=== PATIENT | female | born 1950 | race Caucasian/White ===

== ENCOUNTER 2017-04-27 06:49 | Day surgery (SDC) | payer MEDICARE ==
[2017-04-25 11:14] VITALS: BMI 52.6
[~2017-04-27 06:49] MED LIST: LACTATED RINGERS 1,000 ML IV SCH
[2017-04-27] MEDS ORDERED: LIDOCAINE 1% 20 ML VIAL (10MG/ML) FOR IV START INTRADERMA ONE (07:34)
[2017-04-27 07:36] VITALS: TEMP 98.4
[2017-04-27] MEDS ORDERED: ONDANSETRON 4 MG/2 ML VIAL IVP ONE (07:51)
[2017-04-27] MEDS ORDERED: LIDOCAINE 1% INJ 10MG/ML (20 ML MDV) ONE (08:32)
[2017-04-27] MEDS ORDERED: PROPOFOL 10 MG/ML 20 ML VIAL IV ONE (08:32)
--- NOTE | 2017-04-27 08:36 | P.GSHP ---
History of Present Illness H&P Date: 04/27/17 Chief Complaint: H/O colon polyps 66 yrs old female presents for colonoscopy. Last colonoscopy 3 yrs ago and had polyps. No change in bowel habits - Review of Systems Comment: Constitutional: Denies fever, weight loss or loss of appetite HEENT: No difficulty in vision or hearing. Denies dysphagia. Cardiovascular: Denies chest pain, palpitations, dizziness, shortness of breath. Respiratory: No cough . Gastrointestinal: No recent change in bowel habits, no abdominal pain, no nausea or vomiting. Denies reflux symptoms and no postprandial right upper quadrant pain. Genitourinary: No urinary incontinence, hematuria or dysuria Neurologic: No seizures, denies weakness in upper or lower extremities Musculoskeletal: Occasional left knee pain. Psychiatry: No history of depression, no suicidal ideation, no anxiety or psychosis Past Medical History Past Medical History: Asthma, GERD/Reflux, Hypertension, Neurologic Disorder, Sleep Apnea/CPAP/BIPAP Additional Past Medical History / Comment(s): MOTOR NERVE NEUROPATHY BLE. ON ANTIBIOTICS FOR BRONCHITIS AND SINUS INFECTION History of Any Multi-Drug Resistant Organisms: None Reported Past Surgical History: Appendectomy, Back Surgery, Cholecystectomy, Hysterectomy , Joint Replacement, Orthopedic Surgery, Tonsillectomy Additional Past Surgical History / Comment(s): BACK X 2, BILAT TKA, BILAT CTR, COLONOSCOPY, EGD, CERVICAL FUSION, BILAT SHOULDER REPLACEMENT, MULTIPLE BILAT FOOT SX, ANAL RECONSTRUCTON FROM DEFECT SINCE [id number]-YRS AGO Past Anesthesia/Blood Transfusion Reactions: Postoperative Nausea & Vomiting ( PONV) Smoking Status: Never smoker - Past Family History Mother Family Medical History: No Reported History Medications and Allergies Home Medications Medication Instructions Recorded Confirmed Type Allopurinol [Zyloprim] 300 mg PO HS 11/30/13 04/27/17 History DULoxetine HCL [Cymbalta] 60 mg PO BID 11/30/13 04/27/17 History Gabapentin [Neurontin] 1,200 mg PO BID 11/30/13 04/27/17 History Montelukast [Singulair] 10 mg PO HS 11/30/13 04/27/17 History Albuterol Sulfate [Proair Hfa] 1 - 2 puff INHALATION Q6HR PRN 04/25/17 04/27/17 History Amoxic-Pot Clav 875-125Mg 1 tab PO BID 04/25/17 04/27/17 History [Augmentin 875-125] Baclofen 10 mg PO TID 04/25/17 04/27/17 History Calcium Polycarbophil [Fibercon] 625 mg PO DAILY 04/25/17 04/27/17 History Cholecalciferol [Vitamin D3] 1,000 units PO DAILY 04/25/17 04/27/17 History Diclofenac Sodium 25 mg PO QID 04/25/17 04/27/17 History Fexofenadine HCl [Carolyn Allergy] 180 mg PO DAILY 04/25/17 04/27/17 History HYDROcodone/APAP 7.5-325MG [[place] 1 tab PO Q6HR PRN 04/25/17 04/27/17 History 7.5-325] Losartan Potassium 100 mg PO DAILY 04/25/17 04/27/17 History Multivitamins, Thera [Multivitamin 1 tab PO DAILY 04/25/17 04/27/17 History (formulary)] Pyridoxine HCl (Vitamin B6) 100 mg PO DAILY 04/25/17 04/27/17 History [Vitamin B-6] Vitamin E (Dl,Tocopheryl Acet) 800 units PO DAILY 04/25/17 04/27/17 History [Vitamin E] Allergies Allergy/AdvReac Type Severity Reaction Status Date / Time adhesive tape Allergy Rash/Hives Verified 04/27/17 07:33 amitriptyline Allergy Rash/Hives Verified 04/27/17 07:33 fluphenazine enanthate Allergy Rapid Verified 04/27/17 07:33 [From Prolixin] Heart Rate fluphenazine HCl Allergy Rapid Verified 04/27/17 07:33 [From Prolixin] Heart Rate latex Allergy Rash/Hives Verified 04/27/17 07:33 Sulfa (Sulfonamide Allergy Anaphylaxis Verified 04/27/17 07:33 Antibiotics) levofloxacin [From Levaquin] AdvReac Nausea & Verified 04/27/17 07:33 Vomiting morphine AdvReac Nausea & Verified 04/27/17 07:33 Vomiting Surgical - Exam Vital Signs Temp Pulse Resp BP Pulse Ox 98.4 F 73 16 172/62 96 04/27/17 07:34 04/27/17 07:34 04/27/17 07:34 04/27/17 07:34 04/27/17 07:34 General: Patient is alert and oriented to time, place and person and cooperative with exam. He is not in acute distress. HEENT: No pallor, no icterus, no thyroid enlargement, no cervical lymphadenopathy. Chest: Bilateral equal breath sounds present. No wheezes, no crackles. Cardiovascular: Regular rate and rhythm. Abdomen: Soft, nontender, nondistended. No right upper quadrant tenderness. Integumentary: Bilateral lower extremity chronic venous dermatitis. No active ulcers or discharge. Neurologic: Cranial nerves II-XII intact. Strength upper and lower extremities 5/5. No focal neurologic deficits. Gait is normal. Psychiatric: No anxiety or psychosis. No suicidal thoughts. Assessment and Plan (1) Colon polyps Current Visit: Yes Status: Acute Code(s): K63.5 - POLYP OF COLON SNOMED Code(s): 04780129 Plan: Colonoscopy with possible biopsy. Informed consent obtained and patient elected to undergo the procedure. The risks, benefits and potential complications were explained to the patient.
--- NOTE | 2017-04-27 08:57 | P.OP ---
Date of Procedure: 04/27/17 Preoperative Diagnosis: Personal history of colon polyps Morbid obesity BMI 52.6 Postoperative Diagnosis: Same Procedure(s) Performed: Colonoscopy with cold biopsy 2 Anesthesia: MAC Surgeon: Roxanne Solis Pathology: none sent Condition: stable Disposition: PACU Indications for Procedure: 66 years old female presents for surveillance colonoscopy. Prior history of colonoscopy 3-1/2 years ago and had multiple polyps. Informed consent obtained and patient elected to undergo colonoscopy with possible biopsy. Operative Findings: Two less than 5mm sigmoid colon polyps Scattered sigmoid colon diverticulosis Description of Procedure: The patient was brought to the endoscopy suite and placed in lateral decubitus position. IV sedation was given as per anesthesia team. Patient was on continuous vitals and pulse oximetry monitoring throughout the procedure. A timeout was performed to verify correct patient and correct procedure. Perianal examination did not show any external hemorrhoids. Digital rectal examination was performed. No masses or gross blood. A well-lubricated Olympus colonoscope was passed per rectally and was gradually advanced beyond the sigmoid colon, splenic flexure, transverse colon, hepatic flexure and cecum. The ileocecal valve was visualized as well as the appendiceal orifice . The colonoscope was gradually withdrawn inspecting all the mucosal surfaces. Bowel prep was good. No masses, AV malformations noted. Sigmoid diverticulosis noted without any evidence of acute diverticulitis. Two less than 5 mm polyps noted in the sigmoid colon which were removed using cold biopsy forceps. Those were completely removed The scope was gradually withdrawn and retroflexed in the rectum . No internal hemorrhoids seen. Total withdrawal time was greater than 6 minutes . Patient tolerated the procedure well and was taken to post anesthesia care unit in stable condition. Recommend repeat colonoscopy in 5 years . Final Pathologic Diagnosis COLON, SIGMOID, BIOPSY: FRAGMENT OF COLONIC MUCOSA WITH ADENOMA AND FRAGMENT OF COLONIC MUCOSA WITH PROMINENT SUBMUCOSAL STROMA. PENDING IMMUNOHISTOCHEMICAL STAINS. COLON, SIGMOID, BIOPSY: ADENOMA AND SUBMUCOSAL LEIOMYOMA. Comment Smooth muscle actin immunohistochemical stain is performed with appropriate controls and microscopically examined. The stain demonstrates reactivity with the prominent submucosal stromal tissue consistent with submucosal leiomyoma. The diagnosis has been finalized as above.
[2017-04-27 09:08] VITALS: PULSE 62
[2017-04-27 09:36] VITALS: BP 135/71; RESP 18
== END 2017-04-27 09:55 | disposition home or self-care (01) ==
LOC: ORWHC2ENDO 06:49
PROVIDERS: ATTEND Surgery
DX: Z12.11 Encounter for screening for malignant neoplasm of colon (principal); D12.5 Benign neoplasm of sigmoid colon; K57.30 Diverticulosis of large intestine without perforation or abscess without bleeding; Z86.010 Personal history of colon polyps; E66.01 Morbid (severe) obesity due to excess calories; Z68.43 Body mass index [BMI] 50.0-59.9, adult; J45.909 Unspecified asthma, uncomplicated; K21.9 Gastro-esophageal reflux disease without esophagitis; I10 Essential (primary) hypertension; G47.33 Obstructive sleep apnea (adult) (pediatric); Z99.89 Dependence on other enabling machines and devices; Z79.2 Long term (current) use of antibiotics; Z79.1 Long term (current) use of non-steroidal anti-inflammatories (NSAID); Z79.899 Other long term (current) drug therapy; Z88.1 Allergy status to other antibiotic agents; Z91.040 Latex allergy status; Z88.5 Allergy status to narcotic agent; Z88.2 Allergy status to sulfonamides; Z91.09 Other allergy status, other than to drugs and biological substances
CPT/HCPCS: 88305; 45380; J2405; J2001; J2704; 88342

== ENCOUNTER 2018-08-12 19:43 | Emergency (ER) | payer MEDICARE ==
[2018-08-12 20:03] VITALS: RESP 18; TEMP 98.3
--- NOTE | 2018-08-12 20:59 | CT ---
EXAMINATION TYPE: CT brain denton chan DATE OF EXAM: 08/12/2018 COMPARISON: None HISTORY: Fall today, landing face first on cement. CT DLP: 1561.5 mGycm Automated exposure control for dose reduction was used. TECHNIQUE: CT scan of the head and cervical spine are performed without contrast. FINDINGS: Ventricles of normal size. There is no mass effect nor midline shift. There is no sign of intracranial hemorrhage. The calvarium is intact. There is anterior fusion surgery at C5-6 and C6 and C7. The skull base is intact. The posterior eleme nts are intact. There is no evidence of a fracture. There is mild hypertrophic facet arthropathy. IMPRESSION: Negative CT scan of the brain. Spondylotic changes in the cervical spine with previous surgery. No fracture.
--- NOTE | 2018-08-12 21:01 | CT ---
EXAMINATION TYPE: CT facial bones wo con DATE OF EXAM: 08/12/2018 COMPARISON: 9 HISTORY: Fall today, landing face first on cement. CT DLP: 1561.5 mGycm Automated exposure control for dose reduction was used. TECHNIQUE: CT scan of the sinuses is performed without contrast, axial images are obtained, coronal r eformatted images are also reviewed. FINDINGS: The mandibular ring is intact. Temporomandibular joints are intact. Zygomatic arches appear normal. Maxilla is intact. Nasal bones intact. There is no evidence of a blowout fracture. Orbital m argins are intact. There is no evidence of orbital mass. The maxilla is intact. I see no bony destruc tive process. There is fairly normal aeration of the paranasal sinuses. IMPRESSION: Normal CT scan of the facial bones. No fracture.
[2018-08-12] MEDS ORDERED: DIPH,PERTUS(ACELL)TETVAC-LF 0.5 ML VIAL IM ONE (21:05)
--- NOTE | 2018-08-12 22:06 | XR ---
EXAMINATION TYPE: XR Hip Complete RT DATE OF EXAM: 08/12/2018 COMPARISON: NONE HISTORY: Pain TECHNIQUE: 2 views FINDINGS: I see no fracture nor dislocation. Hip joint space is normal. IMPRESSION: Negative right hip exam.
--- NOTE | 2018-08-12 22:08 | ED ---
General Adult HPI <Giovanny Kruse - Last Filed: 08/12/18 22:51> - General Source: patient, family, EMS, RN notes reviewed, old records reviewed Mode of arrival: EMS Limitations: no limitations <Miah Combs - Last Filed: 08/12/18 23:17> - General Chief complaint: Fall Stated complaint: Fall Time Seen by Provider: 08/12/18 20:14 - History of Present Illness Initial comments: 67-year-old female patient with past history of multiple orthopedic surgeries presents ED after sustaining 2 mechanical falls. Patient states that the first mechanical fall occurred earlier today when she stumbled and fell on her right hip. Patient is to the second mechanical fall occurred approximately one hour prior to presentation to Hospital when she stumbled getting out of her car, fell forward, causing an abrasion above her left orbit as well as her lip. Patient denies any loss of consciousness. Patient primary complaint is abrasion and face. Evaluation of trauma to face. Patient denies any use of blood thinners. Patient denies any other complaints. Patient denies any other complaints. Systemic: Pt denies fatigue, myalgia, fever/chills, rash. Pt denies weakness, night sweats, weight loss. Neuro: Pt denies headache, visual disturbances, syncope or pre-syncope. HEENT: Pt denies ocular discharge or irritation, otalgia, rhinorrhea, pharyngitis or notable lymphadenopathy. Cardiopulmonary: Pt denies chest pain, SOB, heart palpitations, dyspnea on exertion. Abdominal/GI: Pt denies abdominal pain, n/v/d. : Pt denies dysuria, burning w/ urination, frequency/urgency. Denies new onset urinary or bowel incontinence. MSK: Pt denies myalgia, loss of strength or function in extremities. Neuro: Pt denies new onset weakness, paresthesias. (Miah Combs) - Related Data Home Medications Medication Instructions Recorded Confirmed Allopurinol [Zyloprim] 300 mg PO HS 11/30/13 04/27/17 DULoxetine HCL [Cymbalta] 60 mg PO BID 11/30/13 04/27/17 Gabapentin [Neurontin] 1,200 mg PO BID 11/30/13 04/27/17 Montelukast [Singulair] 10 mg PO HS 11/30/13 04/27/17 Albuterol Sulfate [Proair Hfa] 1 - 2 puff INHALATION Q6HR PRN 04/25/17 04/27/17 Amoxic-Pot Clav 875-125Mg 1 tab PO BID 04/25/17 04/27/17 [Augmentin 875-125] Baclofen 10 mg PO TID 04/25/17 04/27/17 Calcium Polycarbophil [Fibercon] 625 mg PO DAILY 04/25/17 04/27/17 Cholecalciferol [Vitamin D3] 1,000 units PO DAILY 04/25/17 04/27/17 Diclofenac Sodium 25 mg PO QID 04/25/17 04/27/17 Fexofenadine HCl [Carolyn Allergy] 180 mg PO DAILY 04/25/17 04/27/17 HYDROcodone/APAP 7.5-325MG [[place] 1 tab PO Q6HR PRN 04/25/17 04/27/17 7.5-325] Losartan Potassium 100 mg PO DAILY 04/25/17 04/27/17 Multivitamins, Thera [Multivitamin 1 tab PO DAILY 04/25/17 04/27/17 (formulary)] Pyridoxine HCl (Vitamin B6) 100 mg PO DAILY 04/25/17 04/27/17 [Vitamin B-6] Vitamin E (Dl,Tocopheryl Acet) 800 units PO DAILY 04/25/17 04/27/17 [Vitamin E] Allergies Allergy/AdvReac Type Severity Reaction Status Date / Time adhesive tape Allergy Rash/Hives Verified 04/27/17 07:33 amitriptyline Allergy Rash/Hives Verified 04/27/17 07:33 fluphenazine enanthate Allergy Rapid Verified 04/27/17 07:33 [From Prolixin] Heart Rate fluphenazine HCl Allergy Rapid Verified 04/27/17 07:33 [From Prolixin] Heart Rate latex Allergy Rash/Hives Verified 04/27/17 07:33 Sulfa (Sulfonamide Allergy Anaphylaxis Verified 04/27/17 07:33 Antibiotics) levofloxacin [From Levaquin] AdvReac Nausea & Verified 04/27/17 07:33 Vomiting morphine AdvReac Nausea & Verified 04/27/17 07:33 Vomiting Review of Systems ROS Other: All systems not noted in ROS Statement are negative. <Giovanny Kruse - Last Filed: 08/12/18 22:51> ROS Other: All systems not noted in ROS Statement are negative. <Miah Combs - Last Filed: 08/12/18 23:17> ROS Statement: Those systems with pertinent positive or pertinent negative responses have been documented in the HPI. Past Medical History Past Medical History: Asthma, GERD/Reflux, Hypertension, Neurologic Disorder, Sleep Apnea/CPAP/BIPAP Additional Past Medical History / Comment(s): MOTOR NERVE NEUROPATHY BLE. ON ANTIBIOTICS FOR BRONCHITIS AND SINUS INFECTION History of Any Multi-Drug Resistant Organisms: None Reported Past Surgical History: Appendectomy, Back Surgery, Cholecystectomy, Hysterectomy, Joint Replacement, Orthopedic Surgery, Tonsillectomy Additional Past Surgical History / Comment(s): BACK X 2, BILAT TKA, BILAT CTR, COLONOSCOPY, EGD, CERVICAL FUSION, BILAT SHOULDER REPLACEMENT, MULTIPLE BILAT FOOT SX, ANAL RECONSTRUCTON FROM DEFECT SINCE [id number]-YRS AGO Past Anesthesia/Blood Transfusion Reactions: Postoperative Nausea & Vomiting (P ONV) Past Psychological History: No Psychological Hx Reported Smoking Status: Never smoker - Past Family History Mother Family Medical History: No Reported History <Miah Combs - Last Filed: 08/12/18 23:17> General Exam Limitations: no limitations <Miah Combs - Last Filed: 08/12/18 23:17> - General Exam Comments Initial Comments: Constitutional: NAD, AOX3, Pt has pleasant affect. HEENT: NC/AT, trachea midline, neck supple, no lymphadenopathy. Posterior pharynx non erythematous, without exudates. External ears appear normal, without discharge. Mucous membranes moist. Eyes PERRLA, EOM intact. There is no scleral icterus. No pallor noted. Cardiopulmonary: RRR, no murmurs, rubs or gallops, no JVD noted. Lungs CTAB in anterior and posterior kennedy. No peripheral edema. Abdominal exam: Abdomen soft and non-distended. Abdomen non-tender to palpation in all 4 quadrants. Bowel sounds active in LLQ. No hepatosplenomegaly. No ecchym osis Neuro: CN II-XII intact. No nuchal rigidity. No cervical spinal tenderness. MSK: Abrasion noted above left orbit as well as an upper lip. No laceration. No posterior calf tenderness bilaterally, homans sign negative bilaterally. Posterior tibialis and radial pulse +2 bilaterally. Sensation intact in upper and lower extremities. Full active ROM in upper and lower extremities, 5/5 stregnth. (Miah Combs) Course <Giovanny Kruse - Last Filed: 08/12/18 22:51> Vital Signs 08/12/18 08/12/18 19:56 22:27 Temperature 98.3 F Pulse Rate 77 83 Respiratory 18 18 Rate Blood Pressure 181/78 196/87 O2 Sat by Pulse 100 99 Oximetry - Reevaluation(s) Reevaluation #1: 08/12/18 22:52 PA supervision: I proceeded [id number] evaluation the patient she did fall after tripping. She did have abrasions to the face CTs are negative for acute findings. Patient is awake alert oriented 3 with a Suzan Coma Scale of 15 I do agree with the assessment and plan. (Giovanny Kruse) Medical Decision Making <Miah Combs - Last Filed: 08/12/18 23:17> - Medical Decision Making 67-year-old female patient with past history of multiple orthopedic surgeries presents ED after sustaining 2 mechanical falls. Patient states that the first mechanical fall occurred earlier today when she stumbled and fell on her right hip. Patient is to the second mechanical fall occurred approximately one hour prior to presentation to Hospital when she stumbled getting out of her car, fell forward, causing an abrasion above her left orbit as well as her lip. Patient denies any loss of consciousness. Patient primary complaint is abrasion and face. Evaluation of trauma to face. Patient denies any use of blood thinners. Patient denies any other complaints. Physical exam displayed: Abrasion noted above left orbit as well as an upper lip. No laceration. CN II-XII intact. No nuchal rigidity. No cervical spinal tenderness. CT of brain and facial bones did not display any acute process. Plain film of knee and hip did not display any acute process. Abrasion cleaned. Patient will be discharged. Patient tetanus updated. Patient will follow up with primary care provider in 1-2 days. Patient return to ER patient worsens in any way. Case discussed with Dr. Kruse. Pt BP mildly elevated. Decreased with analgesia. Pt will monitor at home and return if condition worsens. (Miah Combs) Disposition <Giovanny Kruse - Last Filed: 08/12/18 22:51> Is patient prescribed a controlled substance at d/c from ED?: No <GarretMiah J - Last Filed: 08/12/18 23:17> Clinical Impression: Fall Disposition: HOME SELF-CARE Condition: Stable Instructions (If sedation given, give patient instructions): Fall Prevention for Older Adults (ED) Additional Instructions: Patient to adhere to previously discussed treatment plan and will take medication(s) as directed. Patient to follow up with PCP in 1-2 days. Patient to return to ED if symptoms do not improve. Please return to ER if condition worsens in any way. Referrals: Criselda Brantley DO [Primary Care Provider] - 1-2 days
--- NOTE | 2018-08-12 22:09 | XR ---
EXAMINATION TYPE: XR knee 4V LT DATE OF EXAM: 08/12/2018 COMPARISON: NONE HISTORY: Pain TECHNIQUE: 4 views FINDINGS: There is a left knee prosthesis. Components are in anatomic position. There is no sign of a joint effusion. IMPRESSION: No fracture seen.
[2018-08-12] MEDS ORDERED: HYDROcodone/APAP 7.5-325MG 1 EACH TAB PO ONE (22:28)
[2018-08-12 23:27] VITALS: BP 176/74; PULSE 81
== END 2018-08-12 23:50 | disposition home or self-care (01) ==
LOC: EC 19:43
DX: S00.81XA Abrasion of other part of head, initial encounter (principal); J45.909 Unspecified asthma, uncomplicated; I10 Essential (primary) hypertension; G47.30 Sleep apnea, unspecified; G62.9 Polyneuropathy, unspecified; Z23 Encounter for immunization; Z79.899 Other long term (current) drug therapy; Z91.048 Other nonmedicinal substance allergy status; Z91.040 Latex allergy status; Z88.8 Allergy status to other drugs, medicaments and biological substances; Z88.1 Allergy status to other antibiotic agents; Z88.2 Allergy status to sulfonamides; Z88.5 Allergy status to narcotic agent; Z96.653 Presence of artificial knee joint, bilateral; Z98.1 Arthrodesis status; W01.198A Fall on same level from slipping, tripping and stumbling with subsequent striking against other object, initial encounter
CPT/HCPCS: 70450; 70486; 72125; 73502; 90471; 90715; 99284

== ENCOUNTER → 2018-11-09 | Outpatient (CLI) | payer MEDICARE | END | disposition home or self-care (01) | LOC: LABWHC1 14:25 | PROVIDERS: ATTEND Otolaryngology | DX: J30.89 Other allergic rhinitis (principal) | CPT/HCPCS: 36415 ==

== ENCOUNTER → 2018-12-04 | Outpatient (CLI) | payer MEDICARE ==
[2018-12-05 13:43] LABS: Cow's Milk IgE Class CLASS 0; Egg White IgE <0.35 kU/L (<0.35); Peanut IgE <0.35 kU/L (<0.35); Potato IgE <0.35 kU/L (<0.35); Potato IgE Class CLASS 0; Soybean IgE <0.35 kU/L (<0.35)
== END | disposition home or self-care (01) ==
LOC: LABWHC1 14:42
PROVIDERS: ATTEND Otolaryngology
DX: J30.89 Other allergic rhinitis (principal)
CPT/HCPCS: 36415; 86003

== ENCOUNTER → 2019-01-03 | Outpatient (CLI) | payer MEDICARE ==
[2019-01-03 15:34] LABS: Basophils # (A) 0.1 k/uL (0-0.2); Basophils % (A) 1 %; Eosinophils # (A) 0.2 k/uL (0-0.7); Eosinophils % (A) 2 %; HCT 40.1 % (34.0-46.0); HGB 12.6 gm/dL (11.4-16.0); Lymphocytes # (A) 2.1 k/uL (1.0-4.8); Lymphocytes % (A) 20 %; MCH 26.5 pg (25.0-35.0); MCHC 31.3 g/dL (31.0-37.0); MCV 84.4 fL (80.0-100.0); Mean Platelet Volume 8.4; Monocytes # (A) 0.6 k/uL (0-1.0); Monocytes % (A) 6 %; Neutrophils # (A) 7.4 k/uL (1.3-7.7); Neutrophils % (A) 70 %; Platelet Count 175 k/uL (150-450); RBC 4.75 m/uL (3.80-5.40); WBC 10.6 k/uL (3.8-10.6)
[2019-01-03 23:16] LABS: African American GFR (CKD) 88.4 (60.0-200.0); Albumin 4.3 g/dL (3.80-4.90); Albumin/Globulin Ratio 1.87 (1.60-3.17); Anion Gap 8.7 mmol/L (4.00-12.00); BUN/Creat Ratio 17.5 Ratio (12.00-20.00); Calcium 9.1 mg/dL (8.7-10.3); Carbon Dioxide 29.3 mmol/L (21.6-31.8); Globulin 2.3 g/dL (1.6-3.3); Potassium 4.1 mmol/L (3.5-5.5); Total Bilirubin 0.6 mg/dL (0.3-1.2); Total Protein 6.6 g/dL (6.2-8.2)
[2019-01-03 23:19] LABS: Protein, Total 6.6 g/dL (6.2-8.2)
[2019-01-04 10:33] LABS: Albumin 3.66 g/dL (3.80-4.90); Gamma Globulin 0.99 g/dL (0.70-1.50)
== END | disposition home or self-care (01) ==
LOC: LABWHC1 14:41
PROVIDERS: ATTEND Internal Medicine Nephrology
DX: E78.5 Hyperlipidemia, unspecified (principal)
CPT/HCPCS: 36415; 80053; 82088; 82533; 84165; 84244; 85025

== ENCOUNTER → 2019-01-09 | Outpatient (CLI) | payer MEDICARE ==
--- NOTE | 2019-01-09 10:23 | US ---
EXAMINATION TYPE: US kidneys/renal and bladder DATE OF EXAM: 01/09/2019 COMPARISON: NONE CLINICAL HISTORY: E11.9 Diabetes type 2. Diabetes, HTN EXAM MEASUREMENTS: Right Kidney: 10.5 x 4.2 x 4.7 cm Left Kidney: 13.2 x 5.3 x 5.4 cm Severely, morbidly obese pt, difficult exam Right Kidney: Appeared wnl Left Kidney: Hyperechoic lesion lower pole= 1.9 x 1.3 x 1.6 cm Bladder: wnl Bilateral Jets seen: No There is no evidence for hydronephrosis at this point in time. No nephrolithiasis is seen. No marianne s are identified on the right. The urinary bladder is anechoic. Bilateral ureteral jets are seen. 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 Three-phase CT abdomen is recommended to ensure echographic fat as renal cell carcinomas can appea r hyperechoic on ultrasound.
[2019-01-11 10:09] LABS: Metanephrines 24 Hour,Urine 45 ug/day (52-341); Normetanephrine 24 Hour,Urine 643 ug/day (88-444); Total Metanephrines 24 Hour,Ur 688 ug/day (140-785)
[2019-01-11 10:12] LABS: Dopamine 24 Hr Urine 240 ug/day (65-400); Epinephrine 24 Hr Urine <2 ug/day (0-20); Norepinephrine 24 Hr Urine 116 ug/day (15-80); Total Catecholamines Urine 116 ug/day (15-100); Urine Creatinine,24 Hr 1.2 gm/24h (0.8-1.8)
[2019-01-11 13:20] LABS: Cortisol, Urine Free by LC-MS 7.3 ug/L; Free Cortisol 24 Hour,Urine 11.3 ug/day (<45.0)
== END | disposition home or self-care (01) ==
LOC: RADUSWWP 07:20
PROVIDERS: ATTEND Internal Medicine Nephrology
DX: N28.9 Disorder of kidney and ureter, unspecified (principal); E11.9 Type 2 diabetes mellitus without complications; I10 Essential (primary) hypertension
CPT/HCPCS: 76770; 82384; 82530; 83835

== ENCOUNTER → 2019-01-16 | Outpatient (CLI) | payer MEDICARE ==
--- NOTE | 2019-01-16 14:31 | CT ---
EXAMINATION TYPE: CT abdomen wo con DATE OF EXAM: 01/16/2019 COMPARISON: None HISTORY: Left sided kidney lesion. CT DLP: 1030 mGycm Examination of the solid and hollow viscera is limited given the lack of contrast. Unenhanced CT of t he kidneys and abdomen was performed and without contrast. The lack of contrast limits evaluation. FINDINGS: LUNG BASES: No evidence for nodule. No evidence for infiltrate. LIVER/GB: Cholecystectomy clips noted. No space-occupying hepatic lesion. PANCREAS: No pancreatic mass identified. No inflammatory process seen. SPLEEN: No evidence for splenomegaly. No intrasplenic lesions seen. ADRENALS: No adrenal nodules identified. No evidence for thickening. KIDNEYS: No distinct renal mass identified on this limited unenhanced study. No nephrolithiasis. No h ydronephrosis. BOWEL: Appendix has a normal appearance. No evidence of bowel obstruction. No inflammatory process. Lymph nodes: No evidence for adenopathy greater than 1 cm. Abdominal aorta: Atheromatous changes seen. No evidence for aneurysm. Other: Fusion lumbar spine. IMPRESSION: No distinct renal mass identified on this limited unenhanced study.
== END ==
LOC: RADCTMAIN 14:08
PROVIDERS: ATTEND Internal Medicine Nephrology
DX: N28.9 Disorder of kidney and ureter, unspecified (principal)
CPT/HCPCS: 74150

== ENCOUNTER 2019-09-24 15:01 | Emergency (ER) | payer MEDICARE ==
[2019-09-24 15:18] VITALS: BP 148/84; PULSE 75; RESP 18; TEMP 98.8
--- NOTE | 2019-09-24 15:55 | XR ---
EXAMINATION TYPE: XR knee complete LT DATE OF EXAM: 09/24/2019 CLINICAL HISTORY: Left twisting injury with subsequent left knee pain and inability to extend the kne e TECHNIQUE: Three views of the left knee are obtained. COMPARISON: 08/12/2018. FINDINGS: There is no acute fracture/dislocation evident in the left knee. Left knee arthroplasty ma intains normal alignment. Osseous fragment in the medial compartment is unchanged from 08/12/2018. No significant lucency surrounding the left knee arthroplasty The overlying soft tissue appears unremark able. IMPRESSION: There is no acute fracture or dislocation in the left knee. No hardware fracture or jairo lignment of the left knee arthroplasty.
[2019-09-24] MEDS ORDERED: KETOROLAC 60 MG/2 ML VIAL IM STA (16:04)
[2019-09-24] MEDS ORDERED: ACET/COD 300 MG/30 MG STARTER PACK 6 TAB BTL PO STA (16:04)
--- NOTE | 2019-09-24 16:04 | ED ---
Lower Extremity Injury HPI - General Chief Complaint: Extremity Injury, Lower Stated Complaint: lt knee pain Time Seen by Provider: 09/24/19 15:20 Source: patient, RN notes reviewed, old records reviewed Mode of arrival: wheelchair Limitations: no limitations - History of Present Illness Initial Comments: 68-year-old female presents emergency room today for left-sided knee pain. She reports that she twisted it 2 weeks ago. She reports initially afterward she was unable to fully extend it. She states that she's been able to extend it from time to time but oftentimes it clicks. She reports that she had her knees replaced in [place]. Patient states that she's had no fevers or chills. She denies any shortness of breath or calf pain. Patient states that she has no erythema to the knee. - Related Data Home Medications Medication Instructions Recorded Confirmed Allopurinol [Zyloprim] 300 mg PO HS 11/30/13 04/27/17 DULoxetine HCL [Cymbalta] 60 mg PO BID 11/30/13 04/27/17 Gabapentin [Neurontin] 1,200 mg PO BID 11/30/13 04/27/17 Montelukast [Singulair] 10 mg PO HS 11/30/13 04/27/17 Albuterol Sulfate [Proair Hfa] 1 - 2 puff INHALATION Q6HR PRN 04/25/17 04/27/17 Amoxic-Pot Clav 875-125Mg 1 tab PO BID 04/25/17 04/27/17 [Augmentin 875-125] Baclofen 10 mg PO TID 04/25/17 04/27/17 Calcium Polycarbophil [Fibercon] 625 mg PO DAILY 04/25/17 04/27/17 Cholecalciferol [Vitamin D3] 1,000 units PO DAILY 04/25/17 04/27/17 Diclofenac Sodium 25 mg PO QID 04/25/17 04/27/17 Fexofenadine HCl [Carolyn Allergy] 180 mg PO DAILY 04/25/17 04/27/17 HYDROcodone/APAP 7.5-325MG [[place] 1 tab PO Q6HR PRN 04/25/17 04/27/17 7.5-325] Losartan Potassium 100 mg PO DAILY 04/25/17 04/27/17 Multivitamins, Thera [Multivitamin 1 tab PO DAILY 04/25/17 04/27/17 (formulary)] Pyridoxine HCl (Vitamin B6) 100 mg PO DAILY 04/25/17 04/27/17 [Vitamin B-6] Vitamin E (Dl,Tocopheryl Acet) 800 units PO DAILY 04/25/17 04/27/17 [Vitamin E] Previous Rx's Medication Instructions Recorded Ibuprofen [Motrin] 600 mg PO Q8HR PRN #20 tab 09/24/19 Allergies Allergy/AdvReac Type Severity Reaction Status Date / Time adhesive tape Allergy Rash/Hives Verified 09/24/19 15:13 amitriptyline Allergy Rash/Hives Verified 09/24/19 15:13 fluphenazine enanthate Allergy Rapid Verified 09/24/19 15:13 [From Prolixin] Heart Rate fluphenazine HCl Allergy Rapid Verified 09/24/19 15:13 [From Prolixin] Heart Rate latex Allergy Rash/Hives Verified 09/24/19 15:13 Sulfa (Sulfonamide Allergy Anaphylaxis Verified 09/24/19 15:13 Antibiotics) tolmetin [From Tolectin] Allergy Unknown Verified 09/24/19 15:14 trazodone Allergy Swelling Verified 09/24/19 15:14 fluticasone [From Flonase] AdvReac Dyspnea Verified 09/24/19 15:14 levofloxacin [From Levaquin] AdvReac Nausea & Verified 09/24/19 15:13 Vomiting morphine AdvReac Nausea & Verified 09/24/19 15:13 Vomiting Review of Systems ROS Statement: Those systems with pertinent positive or pertinent negative responses have been documented in the HPI. ROS Other: All systems not noted in ROS Statement are negative. Past Medical History Past Medical History: Asthma, GERD/Reflux, Hypertension, Neurologic Disorder, Sleep Apnea/CPAP/BIPAP Additional Past Medical History / Comment(s): MOTOR NERVE NEUROPATHY BLE. ON ANTIBIOTICS FOR BRONCHITIS AND SINUS INFECTION History of Any Multi-Drug Resistant Organisms: None Reported Past Surgical History: Appendectomy, Back Surgery, Cholecystectomy, Hysterectomy, Joint Replacement, Orthopedic Surgery, Tonsillectomy Additional Past Surgical History / Comment(s): BACK X 2, BILAT TKA, BILAT CTR, COLONOSCOPY, EGD, CERVICAL FUSION, BILAT SHOULDER REPLACEMENT, MULTIPLE BILAT FOOT SX, ANAL RECONSTRUCTON FROM DEFECT SINCE [id number] AGO Past Anesthesia/Blood Transfusion Reactions: Postoperative Nausea & Vomiting (PONV) Past Psychological History: No Psychological Hx Reported Smoking Status: Never smoker Past Alcohol Use History: None Reported Past Drug Use History: None Reported - Past Family History Mother Family Medical History: No Reported History General Exam - General Exam Comments Initial Comments: 68-year-old female. Alert and oriented 3. No significant distress. Limitations: no limitations General appearance: alert, in no apparent distress Head exam: Present: atraumatic, normocephalic, normal inspection Eye exam: Present: normal appearance, PERRL, EOMI. Absent: scleral icterus, conjunctival injection, periorbital swelling ENT exam: Present: normal exam, mucous membranes moist Neck exam: Present: normal inspection. Absent: tenderness, meningismus, lymphad enopathy Respiratory exam: Present: normal lung sounds bilaterally. Absent: respiratory distress, wheezes, rales, rhonchi, stridor Cardiovascular Exam: Present: regular rate, normal rhythm, normal heart sounds. Absent: systolic murmur, diastolic murmur, rubs, gallop, clicks GI/Abdominal exam: Present: soft, normal bowel sounds. Absent: distended, tenderness, guarding, rebound, rigid Extremities exam: Present: normal inspection, full ROM, normal capillary refill. Absent: tenderness, pedal edema, joint swelling, calf tenderness Left Upper Leg exam: Present: normal inspection, full ROM Knee exam: Present: full ROM. Absent: normal inspection (Evidence of previous knee replacement scar over the knee. No erythema. Patient is unable to fully extend. Full flexion is noted.) Lower Leg exam: Present: normal inspection, full ROM Ankle exam: Present: normal inspection, full ROM Foot/Toe exam: Present: normal inspection, full ROM Gait: observed and normal Back exam: Present: normal inspection Neurological exam: Present: alert, oriented X3, CN II-XII intact Psychiatric exam: Present: normal affect, normal mood Skin exam: Present: warm, dry, intact, normal color. Absent: rash Course Vital Signs 09/24/19 15:15 Temperature 98.8 F Pulse Rate 75 Respiratory 18 Rate Blood Pressure 148/84 O2 Sat by Pulse 97 Oximetry Medical Decision Making - Medical Decision Making 68-year-old female presents emergency Department chief complaint of locking knee since she twisted it last 2 weeks ago. Patient at this time is unable to fully extend. She has full flexion. No erythema. She does have some mild swelling within the knee joint. X-rays completed shows no abnormalities in regards to patient's hardware within the knee. I advised Patient to follow-up with orthopedic. Patient discharged with a temperature medication and knee immobilizer. - Radiology Data Radiology results: report reviewed X-ray shows no fracture or dislocation of the left knee. No hardware fracture or malalignment of the left knee arthroplasty. Disposition Clinical Impression: Locked knee Disposition: HOME SELF-CARE Condition: Good Instructions (If sedation given, give patient instructions): Knee Sprain (ED) Additional Instructions: Please use medication as discussed. Please follow up with family doctor if symptoms have not improved over the next two days. Please return to the emergency room if your symptoms increase or worsen or for any other concerns. Prescriptions: Ibuprofen [Motrin] 600 mg PO Q8HR PRN #20 tab PRN Reason: Pain Is patient prescribed a controlled substance at d/c from ED?: No Referrals: Criselda Brantley DO [Primary Care Provider] - 1-2 days Jacobo Syed PAC [PHYSICIAN FACETOR] - 1-2 days Time of Disposition: 16:03
== END 2019-09-24 16:45 | disposition home or self-care (01) ==
LOC: EC 15:01
DX: M23.92 Unspecified internal derangement of left knee (principal); J45.909 Unspecified asthma, uncomplicated; I10 Essential (primary) hypertension; G47.30 Sleep apnea, unspecified; G62.9 Polyneuropathy, unspecified; Z79.51 Long term (current) use of inhaled steroids; Z79.1 Long term (current) use of non-steroidal anti-inflammatories (NSAID); Z79.899 Other long term (current) drug therapy; Z91.048 Other nonmedicinal substance allergy status; Z88.1 Allergy status to other antibiotic agents; Z88.8 Allergy status to other drugs, medicaments and biological substances; Z88.2 Allergy status to sulfonamides; Z91.040 Latex allergy status; Z88.5 Allergy status to narcotic agent; Z99.89 Dependence on other enabling machines and devices; Z96.653 Presence of artificial knee joint, bilateral; Z98.1 Arthrodesis status; X50.1XXA Overexertion from prolonged static or awkward postures, initial encounter
CPT/HCPCS: 99284; 96372; 73562; L1830; J1885

== ENCOUNTER → 2020-02-01 | Outpatient (CLI) | payer MEDICARE ==
[2020-02-01 12:54] LABS: HCT 38.4 % (34.0-46.0); HGB 12.1 gm/dL (11.4-16.0); Hypochromasia Slight; MCH 28.1 pg (25.0-35.0); MCHC 31.5 g/dL (31.0-37.0); MCV 89.2 fL (80.0-100.0); Mean Platelet Volume 8.9; Platelet Count 137 k/uL (150-450); RBC 4.31 m/uL (3.80-5.40); RDW 15.1 % (11.5-15.5)
[2020-02-01 19:53] LABS: Hemoglobin A1C 5.8 % (4.0-6.0)
[2020-02-01 20:30] LABS: Protein, Total 6.4 g/dL (6.2-8.2)
[2020-02-01 20:51] LABS: African American GFR (CKD) 103.2 (60.0-200.0); Anion Gap 9.3 mmol/L (4.00-12.00); Calcium 9.3 mg/dL (8.7-10.3); Carbon Dioxide 27.7 mmol/L (21.6-31.8); Magnesium 1.7 mg/dL (1.5-2.4); Potassium 4.6 mmol/L (3.5-5.5); Uric Acid 4.8 mg/dL (2.9-7.7)
[2020-02-01 22:06] LABS: Erythrocyte Sedimentation Rate 25 mm/Hr (0-30)
[2020-02-05 14:26] LABS: Albumin 3.53 g/dL (3.80-4.90); Gamma Globulin 0.93 g/dL (0.70-1.50)
== END | disposition home or self-care (01) ==
LOC: LABWHC1 11:41
PROVIDERS: ATTEND Physical Medicine & Rehabilitation
DX: G60.3 Idiopathic progressive neuropathy (principal); E11.9 Type 2 diabetes mellitus without complications; M13.80 Other specified arthritis, unspecified site; R25.2 Cramp and spasm; Z79.899 Other long term (current) drug therapy
CPT/HCPCS: 36415; 80051; 82310; 82550; 82565; 82607; 82746; 82977; 83036; 83615; 83735; 84075; 84165; 84207; 84443; 84450; 84460; 84480; 84481; 84520; 84550; 85027; 85652; 86038; 86431